=== PATIENT | male | born 1990 | race African-American/Black ===

== ENCOUNTER 2020-11-18 15:04 | Emergency (ER) | payer OTHER, MEDICAID ==
[2020-11-18 15:40] LABS: ABSOLUTE BASOPHILS # (AUTO) 0.1 10^3/uL (0.0-0.2); ABSOLUTE LYMPHOCYTES (AUTO) 1.9 10^3/uL (0.5-4.7); ABSOLUTE MONOCYTES (AUTO) 0.9 10^3/uL (0.1-1.4); ABSOLUTE NEUT (AUTO) 9.9 10^3/uL (1.7-8.2); BASOPHILS % (AUTO) 0.6 % (0-2); EOSINOPHILS % (AUTO) 0.3 % (0-6); HEMATOCRIT 39.9 % (37.9-51.0); HEMOGLOBIN 14.1 g/dL (13.5-17.0); LYMPHOCYTES % (AUTO) 14.8 % (13-45); MEAN CORPUSCULAR HEMOGLOBIN 30.2 pg (27.0-33.4); MEAN CORPUSCULAR HGB CONC 35.3 g/dL (32.0-36.0); MEAN CORPUSCULAR VOLUME 86 fl (80-97); MONOCYTES % (AUTO) 6.7 % (3-13); PLATELET COUNT 223 10^3/uL (150-450); RED BLOOD COUNT 4.66 10^6/uL (4.35-5.55); RED CELL DISTRIBUTION WIDTH 13.7 % (11.5-14.0); SEGMENTED NEUTROPHILS % (AUTO) 77.6 % (42-78); TOTAL CELLS COUNTED % (AUTO) 100 %; WHITE BLOOD COUNT 12.7 10^3/uL (4.0-10.5)
[2020-11-18 15:48] LABS: INTERNATIONAL RATION (INR) 0.96
[2020-11-18 15:58] LABS: ALBUMIN 4.4 g/dL (3.5-5.0); ALKALINE PHOSPHATASE 58 U/L (38-126); ANION GAP 8 (5-19); ASPARTATE AMINO TRANSFERASE 29 U/L (17-59); BILIRUBIN,DIRECT 0.2 mg/dL (0.0-0.4); BILIRUBIN,TOTAL 0.5 mg/dL (0.2-1.3); BLOOD UREA NITROGEN 15 mg/dL (7-20); CALCIUM 9.5 mg/dL (8.4-10.2); CARBON DIOXIDE 28 mmol/L (22-30); CHLORIDE 102 mmol/L (98-107); GLUCOSE 95 mg/dL (75-110); POTASSIUM 4.2 mmol/L (3.6-5.0)
--- NOTE | 2020-11-18 16:48 | ER Document Report ---
ED Extremity Problem, Lower - General Stated Complaint: POSSIBLE SEPSIS Time Seen by Provider: 11/18/20 16:35 Notes: CHIEF COMPLAINT: Redness and pain post surgery HPI: 30-year-old male presenting to the emergency department for evaluation of increasing redness and pain over the last 2 days post ACL and MCL surgery that was done at [facility] by Dr. Figueroa Bales 6 days ago. No fever. States he did have his initial checkup in the office 3 to 4 days ago and was not told that he had any redness in the leg but has had increasing pain over the last 2 days. He has been doing his range of motion exercises. States he was not placed on antibiotics postop. ROS: See HPI - all other systems were reviewed and are otherwise negative Constitutional: no fever Integumentary: + rash Allergy: no hives Musculoskeletal: + extremity pain or swelling Neurological: no numbness/tingling, no weakness MEDICATIONS: I agree with the patient medications as charted by the RN. ALLERGIES: I agree with the allergies as charted by the RN. PAST MEDICAL HISTORY/PAST SURGICAL HISTORY: Reviewed and agree as charted by RN. SOCIAL HISTORY: Reviewed and agree as charted by RN. FAMILY HISTORY: No significant familial comorbid conditions directly related to patient complaint EXAM: Reviewed vital signs as charted by RN. CONSTITUTIONAL: Alert and oriented and responds appropriately to questions. Well-appearing; well-nourished HEAD: Normocephalic; atraumatic EYES: Conjunctivae clear, sclerae non-icteric ENT: normal nose; no rhinorrhea; moist mucous membranes NECK: Supple without meningismus CARD: symmetric distal pulses RESP: Normal chest excursion without splinting or tachypnea ABD/GI: non-distended BACK: The back appears normal EXT: Surgical wounds over the anterior right knee consistent with patient's surgery history. Limited flexion extension of the right leg at the knee secondary likely to recent surgery SKIN: Normal color for age and race; warm; dry; good turgor; there is erythema measuring approximately 9 cm x 5 cm over the anterior proximal tibial region not directly over the anterior knee with no induration or fluctuance NEURO: Moves all extremities equally; Motor and sensory function intact PSYCH: The patient's mood and manner are appropriate. Grooming and personal hygiene are appropriate. MDM: 30-year-old male 6 days post ACL MCL surgery with a cellulitis distal to the wound area. Given the recent history of surgery will discuss with the orthopedic surgeons at [facility] regarding management - Related Data Allergies/Adverse Reactions: No Known Allergies Allergy (Verified 11/18/20 15:31) Past Medical History - Social History Smoking Status: Current Every Day Smoker Frequency of alcohol use: Occasional Drug Abuse: None Family History: Reviewed & Not Pertinent Past Surgical History: Reports: Hx Orthopedic Surgery - ACL Repair Physical Exam - Vital signs Vitals: Resp Pulse Ox 18 97 11/18/20 15:13 11/18/20 15:13 Course - Re-evaluation Re-evalutation: 11/18/20 16:[address] Erik Leavitt, Orthopedics for [facility]. Case was discussed. Recommends starting patient on Keflex and he will forward the note that patient was in for evaluation to Dr. Bales for follow-up - Vital Signs Vital signs: Temp Pulse Resp BP Pulse Ox 98.3 F 18 121/86 H 98 11/18/20 15:26 11/18/20 16:01 11/18/20 16:01 11/18/20 16:01 - Laboratory Results Result Diagrams: 11/18/20 15:11 11/18/20 15:11 Laboratory Results Interpreted: 11/18/20 15:11 WBC 12.7 H Absolute Neuts (auto) 9.9 H Critical Laboratory Results Reviewed: No Critical Results - Radiology Results Critical Radiology Results Reviewed: No Critical Results Discharge - Discharge Clinical Impression: Cellulitis, wound, post-operative Condition: Stable Disposition: HOME, SELF-CARE Additional Instructions: Continue your prior pain medications. Warm heat to the lower leg to help with inflammation. Take the antibiotics as prescribed. Follow-up with Dr. Bales on Sunday as previously scheduled, if you have worsening redness or onset of fever greater than 101 follow-up at [facility] or return for reevaluation Prescriptions: Cephalexin Monohydrate [Keflex 500 mg Capsule] 500 mg PO Q6H 7 Days #28 capsule
[2020-11-18] MEDS ORDERED: CEFAZOLIN 2 GM/D5W RTU 2 GM/50 ML RTUPB IV ONE (16:57)
[2020-11-18 17:06] VITALS: BP 117/89
--- NOTE | 2020-11-18 19:53 | EKG REPORT ---
SEVERITY:- NORMAL ECG - SINUS RHYTHM : Confirmed by: Zhanna Hernandez MD 18-Nov-2020 19:52:52
== END 2020-11-18 18:19 | disposition home or self-care (01) ==
LOC: ER 15:04
DX: T81.49XA Infection following a procedure, other surgical site, initial encounter (principal); L03.115 Cellulitis of right lower limb; Y83.8 Other surgical procedures as the cause of abnormal reaction of the patient, or of later complication, without mention of misadventure at the time of the procedure; F17.200 Nicotine dependence, unspecified, uncomplicated
CPT/HCPCS: 93005; 99284; 96365; 36415; 87040; 83605; 85025; 85610; 80053; 93010; J0690